=== PATIENT | male | born 1995 | race Native Hawaiian/Other Pacific Islander ===

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

== ENCOUNTER 2018-06-15 07:47 | Emergency (ER) | payer MEDICAID, OTHER ==
[~2018-06-15] VITALS: Ht 182.9 cm; Wt 99.8 kg
[2018-06-15 07:51] VITALS: BP 145/75
--- NOTE | 2018-06-15 08:04 | NUR ---
PT AMB TO BED 4.
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
--- NOTE | 2018-06-15 08:11 | NUR ---
Patient being evaluated by physician at bedside.
[2018-06-15] MEDS ORDERED: IBUPROFEN 800 MG TAB PO ONE (08:15)
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
[2018-06-15] MEDS ORDERED: BACITRACIN OINT 500 UNITS/GM PKT TP ONE (09:35)
[2018-06-15 09:42] VITALS: BP 138/71
== END 2018-06-15 09:43 | disposition home or self-care (01) ==
LOC: MED 07:47
DX: S46.911A Strain of unspecified muscle, fascia and tendon at shoulder and upper arm level, right arm, initial encounter (principal); S00.81XA Abrasion of other part of head, initial encounter; S00.31XA Abrasion of nose, initial encounter; S80.212A Abrasion, left knee, initial encounter; M25.531 Pain in right wrist; M79.661 Pain in right lower leg; Y04.2XXA Assault by strike against or bumped into by another person, initial encounter; Y93.01 Activity, walking, marching and hiking; Y93.89 Activity, other specified; Y99.8 Other external cause status
CPT/HCPCS: 70160; 73030; 90471; 90715; 99283

== ENCOUNTER 2018-07-11 08:11 | Emergency (ER) | payer MEDICAID ==
[~2018-07-11] VITALS: Ht 177.8 cm; Wt 97.5 kg
[2018-07-11 08:14] VITALS: BP 147/98
--- NOTE | 2018-07-11 08:20 | NUR ---
urine cup handed to pt for sample
[2018-07-11] MEDS ORDERED: THIAMINE 200 MG/2 ML VIAL IM ONE (08:45)
[2018-07-11] MEDS ORDERED: LORazepam 2 MG/ML VIAL IM ONE (08:45)
--- NOTE | 2018-07-11 09:09 | NUR ---
PT MEDICATED ORDERED. PT C/O NAUSEA, DR. MATHEWS MADE AWARE. NO NEW ORDERS.
[2018-07-11 09:22] VITALS: BP 145/81
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
== END 2018-07-11 09:23 | disposition home or self-care (01) ==
LOC: MED 08:11
DX: F12.10 Cannabis abuse, uncomplicated (principal); F14.10 Cocaine abuse, uncomplicated; F15.10 Other stimulant abuse, uncomplicated; F17.200 Nicotine dependence, unspecified, uncomplicated
CPT/HCPCS: 36415; 96372; 99283; G0482; J2060; J3411

== ENCOUNTER 2018-08-27 14:49 | Emergency (ER) | payer MEDICAID, OTHER ==
[~2018-08-27] VITALS: Ht 182.9 cm; Wt 100.2 kg
[2018-08-27 14:59] VITALS: BP 147/106
--- NOTE | 2018-08-27 15:02 | NUR ---
PT AMBULATED TO LOBBY WITH VSS AT THIS TIME.
--- NOTE | 2018-08-27 15:28 | NUR ---
C/O TOE PAIN X1 DAY. PT DENIES TRAUMA, STATES HE MIGHT HAVE DONE IT PLAYING LASER TAG. BRUISING ON TOP AND LATERAL SIDE OF 1ST TOE ON RT FOOT. TOE IS ALSO BENT LATEREALLY, PT STATES THIS IT NOT NORMAL POSITION. PAIN 7/10 AT THIS TIME. PT SITTING COMFORTABLY IN HIS BED AT THIS TIME. BED SIDE RAIL UP X1, BED AT THE LOWER POSITION. WILL CONTINUE TO MONITOR PT.
[2018-08-27] MEDS ORDERED: KETOROLAC 60 MG/2 ML VIAL IM ONE (15:40)
--- NOTE | 2018-08-27 15:52 | NUR ---
LARGE ORTHO SHOE APPLIED TO PATIENT'S RIGHT FOOT. PMSCs INTACT BEFORE AND AFTER APPLICATION.
[2018-08-27 16:05] VITALS: BP 132/89
--- NOTE | 2018-08-27 16:06 | NUR ---
Patient discharged with v/s stable. Written and verbal after care instructions given and explained. Patient alert, oriented and verbalized understanding of instructions. Ambulatory with steady gait. All questions addressed prior to discharge. ID band removed. Patient advised to follow up with PMD. Rx of ibu given. Patient educated on indication of medication including possible reaction and side effects. Opportunity to ask questions provided and answered.
== END 2018-08-27 16:06 | disposition home or self-care (01) ==
LOC: MED 14:49
DX: S90.31XA Contusion of right foot, initial encounter (principal); F17.200 Nicotine dependence, unspecified, uncomplicated; W50.0XXA Accidental hit or strike by another person, initial encounter; Y93.89 Activity, other specified; Y92.89 Other specified places as the place of occurrence of the external cause; Y99.8 Other external cause status
CPT/HCPCS: 73660; 96372; 99283; J1885; Q0092

== ENCOUNTER 2019-08-09 08:19 | Emergency (ER) | payer OTHER ==
[~2019-08-09] VITALS: Ht 180.3 cm; Wt 108.4 kg
[2019-08-09 08:23] VITALS: BP 115/89
[2019-08-09] MEDS ORDERED: KETOROLAC 60 MG/2 ML VIAL IM ONE (09:10)
[2019-08-09 09:55] VITALS: BP 120/82
== END 2019-08-09 09:55 | disposition home or self-care (01) ==
LOC: MED 08:19
DX: R07.9 Chest pain, unspecified (principal); F19.10 Other psychoactive substance abuse, uncomplicated; F12.90 Cannabis use, unspecified, uncomplicated; F14.90 Cocaine use, unspecified, uncomplicated
CPT/HCPCS: 71045; 81002; 93005; 96372; 99283; J1885; Q0092; 99284

== ENCOUNTER 2019-11-12 18:47 | Emergency (ER) | payer OTHER ==
[~2019-11-12] VITALS: Ht 182.9 cm; Wt 106.6 kg
[2019-11-12 19:04] VITALS: BP 156/95
--- NOTE | 2019-11-12 19:08 | NUR ---
TENT OF 3 .
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
--- NOTE | 2019-11-12 20:15 | NUR ---
ERMD ASSESSING PT IN TENT.
[2019-11-12 20:40] VITALS: BP 132/88
--- NOTE | 2019-11-12 20:45 | NUR ---
Patient discharged with v/s stable. Written and verbal after care instructions given and explained. Patient alert, oriented and verbalized understanding of instructions. Ambulatory with steady gait. All questions addressed prior to discharge. ID band removed. Patient advised to follow up with PMD. Rx of MOTRIN, ZOFRAN, NORCO given. Patient educated on indication of medication including possible reaction and side effects. Opportunity to ask questions provided and answered.
--- NOTE | 2019-11-13 18:08 | NUR ---
Positive COVID-19 test results were received from lab. A copy of the test results were given to Infection Control.
== END 2019-11-12 20:45 | disposition home or self-care (01) ==
LOC: MED 18:47
DX: R50.9 Fever, unspecified (principal); Z20.828 Contact with and (suspected) exposure to other viral communicable diseases; R11.2 Nausea with vomiting, unspecified; R05 Cough; F12.90 Cannabis use, unspecified, uncomplicated; Z98.890 Other specified postprocedural states
CPT/HCPCS: 99283; U0003

== ENCOUNTER 2023-09-19 09:39 | Emergency (ER) | payer OTHER ==
[~2023-09-19] VITALS: Ht 182.9 cm; Wt 108.9 kg
[2023-09-19 10:05] VITALS: BP 159/107; PULSE 72; RESP 18; TEMP 97.6; O2SAT 97
[2023-09-19] MEDS: NACL 0.9% 1,000 ML IV ONE (10:33)
[2023-09-19] MEDS: ONDANSETRON 4 MG/2 ML VIAL IVP ONE (10:59)
[2023-09-19 11:03] LABS: BASOPHILS # (AUTO) 0.1 K/uL (0.00-0.22); BASOPHILS % (AUTO) 1.2 % (0.0-2.0); EOSINOPHILS # (AUTO) 0.1 K/uL (0-0.4); HEMATOCRIT 48.3 % (36-52); HEMOGLOBIN 16.9 g/dL (12.0-18.0); LYMPHOCYTES # (AUTO) 1.1 K/uL (2.0-11.5); LYMPHOCYTES % (AUTO) 19.7 % (20.5-51.1); MEAN CORPUSCULAR HEMOGLOBIN 31 pg (27-31); MEAN CORPUSCULAR HGB CONC 35 g/dL (33-37); MEAN CORPUSCULAR VOLUME 89.5 fL (80-94); MONOCYTES # (AUTO) 0.6 K/uL (0.8-1.0); MONOCYTES % (AUTO) 11.1 % (1.7-9.3); NEUTROPHILS # (AUTO) 3.8 K/uL (1.8-7.7); PLATELET COUNT (AUTO) 254 K/uL (140-450); RED CELL DISTRIBUTION WIDTH 12.8 % (11.6-13.7); WHITE BLOOD COUNT (AUTO) 5.7 K/uL (4.8-10.8)
[2023-09-19 11:04] LABS: ALBUMIN 4.1 g/dL (3.4-5.0); ANION GAP 14.8 (8-16); CALCIUM 8.8 mg/dL (8.5-10.1); CARBON DIOXIDE 26.1 mmol/L (21-32); CREATININE 0.9 mg/dL (0.6-1.3); POTASSIUM 3.9 mmol/L (3.5-5.1); TOTAL PROTEIN, SERUM 7.6 g/dL (6.4-8.2)
[2023-09-19 11:16] LABS: FLU A ANTIGEN negative (NEGATIVE); FLU B ANTIGEN negative (NEGATIVE)
[2023-09-19] MEDS ORDERED: ONDA-188 SL (11:46)
== END 2023-09-19 12:34 | disposition home or self-care (01) ==
LOC: MED 09:39
DX: K52.9 Noninfective gastroenteritis and colitis, unspecified (principal); R03.0 Elevated blood-pressure reading, without diagnosis of hypertension; Z20.822 Contact with and (suspected) exposure to COVID-19; Z79.1 Long term (current) use of non-steroidal anti-inflammatories (NSAID)
CPT/HCPCS: 36415; 80053; 83690; 85025; 87426; 87804; 96361; 96374; 99283; J2405; J7030